=== PATIENT | female | born 1950 | race Caucasian/White ===

== ENCOUNTER 2020-07-17 12:16 | Outpatient (REF) | payer OTHER, SELFPAY ==
--- NOTE | ~2020-07-17 | MM_ITS ---
EXAMINATION: MM SCREENING DIGITAL BREAST TOMOSYNTHESIS, BILATERAL CLINICAL INFORMATION: Screening. Asymptomatic. The lifetime risk of breast cancer based on the Tyrer-Cuzick Model is 3%. COMPARISON: Mammography: 12/28/2018, 11/11/2016 TECHNIQUE: Digital breast tomosynthesis is performed in both the craniocaudal and mediolateral oblique views along with computer-aided detection (CAD). Synthesized 2D images are generated from the tomosynthesis. Additional left MLO view is provided. FINDINGS: The breasts are heterogeneously dense, which may obscure small masses (ACR BI-RADS breast composition Category c). There are no significant masses, abnormal calcifications, or other abnormalities. Parenchymal pattern is similar to prior studies. Again, there are scattered bilateral vascular calcifications. Skin contours are smooth. MM/MM tomosynthesis screening BI IMPRESSION: No mammographic evidence of malignancy. ASSESSMENT: BI-RADS 1: Negative RECOMMENDATION: Routine annual mammography screening. This patient's information was entered into a reminder system with a target due date for their next mammogram.
== END 2020-07-17 12:17 | disposition home or self-care (01) ==
LOC: HO.MAMMO 12:16
PROVIDERS: PCP Internal Medicine Geriatric Medicine; Visit Provider Internal Medicine Geriatric Medicine
DX: Z12.31 Encounter for screening mammogram for malignant neoplasm of breast (principal)
CPT/HCPCS: 77063; 77067

== ENCOUNTER 2020-07-22 14:16 | Emergency (ER) | payer OTHER, SELFPAY ==
--- NOTE | ~2020-07-22 | XR_ITS ---
EXAMINATION: XR KNEE, LEFT CLINICAL INFORMATION: Left knee pain. COMPARISON: None TECHNIQUE: Four views of the left knee. FINDINGS: Minimal degenerative spurring off of the superior margin of the patella. No other significant degenerative changes. There is no acute fracture, dislocation or joint effusion. The soft tissues are unremarkable. XR/XR knee LT 4V IMPRESSION: Minimal degenerative patellar spurring superiorly without other acute abnormality.
[2020-07-22 14:18] VITALS: BP 124/71; PULSE 120; RESP 19; TEMP 36.6; O2SAT 97; BMI 18.8
[2020-07-22 15:39] VITALS: BP 107/55; PULSE 106; RESP 14; O2SAT 96
--- NOTE | 2020-07-22 15:49 | ED_ITS ---
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 which is not her main complaint today There is no numbness weakness or tingling, no injury to her neck Related Data Allergies Allergy/AdvReac Type Severity Reaction Status Date / Time Penicillins Allergy Unknown HIVES Verified 07/22/20 14:22 Review of Systems Review of Systems: Positive for left knee pain Negatives are no dizziness no weakness no confusion no fainting no falling no numbness weakness or tingling no shortness of breath no chest pain no rash [facility] Past Medical History Attestation statement: The following information was validated with the patient. [facility] Narrative: Patient has chronic neck pain and history of intermittent flares of pain in each of her knees Source: nursing notes reviewed Social History Social History Smoked in Last 30 Days: No Use of substances other than those prescribed or required for medical reasons: No Advance Directives: No Advance Directives Information Provided: No Physical Exam Vital Signs: Vital Signs: Last Vital Signs Temp 97.9 F 07/22/20 14:18 Pulse 106 H 07/22/20 15:39 Resp 14 07/22/20 15:39 BP 107/55 L 07/22/20 15:39 Pulse Ox 96 07/22/20 15:39 Body Mass Index 18.8 General appearance is no distress, A&O x3, common cooperative Head normocephalic nontraumatic The neck had mild posterior tenderness no focal bony tenderness, range of motion was good Respiratory no acute distress Extremities the left knee was not swollen not read was held at 180 degrees and flexes to about 90 there was tenderness over the anterior aspect of the knee, color was normal, no obvious ligamentous laxity, patient could ambulate with a mild limp Skin no rashes Neuro no focal deficit Course Course Course Narrative: X-ray of left knee showed mild arthritic changes, she is advised to follow with orthopedist Discharge Plan Discharge Clinical Impression: Arthralgia of left knee Patient Disposition: Home, Self-Care Additional Instructions: Tylenol as needed for pain Follow with orthopedist Return any concerns Referrals: Suhail Ge MD [Physician] - 2 days (Flare of left knee chronic arthritic pain)
[2020-07-22] MEDS: Ketorolac Tromethamine 15 MG/ML VIAL IM (16:36)
== END 2020-07-22 16:52 | disposition home or self-care (01) ==
PROVIDERS: Emergency Provider Emergency Medicine Emergency Medical Services; PCP Internal Medicine Geriatric Medicine
DX: M25.562 Pain in left knee (principal); M54.2 Cervicalgia
CPT/HCPCS: 73564; 96372; 99284; J1885